=== PATIENT | female | born 1985 | race Two or more races ===

== ENCOUNTER 2024-10-15 00:45 | Emergency (ER) | payer MEDICAID, OTHER ==
[~2024-10-15] VITALS: Ht 157.5 cm; Wt 82.7 kg
--- NOTE | 2024-10-15 06:59 | ED.PDOC ---
PASSENGER REPRESENTATIVE HPI Comments 38 y/o F, presents to the ED for CC of vaginal bleeding. 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 Patient reports, her LMP to have been on 08/08/24. Patient denies abdominal cramping, vaginal cramping, dysuria, faintness, or dizziness. No other symptoms or modifying factors present at this time. Chief Complaint: Vaginal Bleed Time Seen by MD: 06:30 Reviewed Notes: Nurses Notes, Medications, Allergies Allergies: Coded Allergies: No Known Drug Allergy (Verified Allergy, Unknown, 10/15/24) Information Source: Patient Mode of Arrival: Ambulatory Timing: Minutes Prehospital treatment: None Severity: Moderate Vaginal Discharge: None Vaginal Lesions: None Bleeding Quality: Bright Red, Clotted Vaginal Mass: None Onset Of Mass/Bleeding: Spontaneous Sexual Activity: Last Consensual [place]: Weeks History of: Current Blood Type: Unknown Associated Signs and Symptoms: Vaginal Bleeding Past Medical History PAST MEDICAL HISTORY: Denies Surgical History: Denies all surgeries LABOR CONTRACT ANALYST History: Denies all LABOR CONTRACT ANALYST Hx Family History Family History: Unknown Social History Smoker: Non-Smoker Alcohol: Denies ETOH Use Drugs: Denies Drug Use Lives In: Home Constitutional: denies: chills, diaphoresis, fatigue, fever, malaise, sweats, weakness, others EENTM: denies: blurred vision, double vision, ear bleeding, ear discharge, ear drainage, ear pain, ear ringing, eye pain, eye redness, hearing loss, mouth pain, mouth swelling, nasal discharge, nose bleeding, nose congestion, nose pain, photophobia, tearing, throat pain, throat swelling, voice changes, others Respiratory: denies: cough, hemoptysis, orthopnea, SOB at rest, shortness of breath, SOB with excertion, stridor, wheezing, others Cardiovascular: denies: chest pain, dizzy spells, diaphoresis, Dyspnea on exertion, edema, irregular heart beat, left arm pain, lightheadedness, palpitations, PND, syncope, others Gastrointestinal: denies: abdomen distended, abdominal pain, blood streaked bowels, constipated, diarrhea, dysphagia, difficulty swallowing, hematemesis, melena, nausea, poor appetite, poor fluid intake, rectal bleeding, rectal pain, vomiting, others Genitourinary: reports: abnormal vagina bleeding; denies: burning, dyspareunia, dysuria, flank pain, frequency, hematuria, incontinence, pain, , vagina discharge, urgency, others Neurological: denies: dizziness, fainting, headache, left sided numbness, left sided weakness, numbness, paresthesia, pre-existing deficit, right sided numb ness, right sided weakness, seizure, speech problems, tingling, tremors, weakness, others Musculoskeletal: denies: back pain, gout, joint pain, joint swelling, muscle pain, muscle stiffness, neck pain, others Integumetry: denies: bruises, change in color, change in hair/nails, dryness, laceration, lesions, lumps, rash, wounds, others Allergic/Immunocompromised: denies: Difficulty Healing, Frequent Infections, Hives, Itching, others Hematologic/Lymphatic: reports: blood clots; denies: anemia, easy bleeding, easy bruising, swollen glands, others Endocrine: denies: excessive hunger, excessive sweating, excessive thirst, excessive urination, flushing, intolerance to cold, intolerance to heat, unexplained weight gain, unexplained weight loss, others Psychiatric: denies: anxiety, bipolar disorder, depression, hopeless, panic disorder, schizophrenia, sleepless, suicidal, others All Other Systems: Reviewed and Negative Physical Exam General Appearance: Moderate Distress HEENT: Normal ENT Inspection, Pharynx Normal, TMs Normal Neck: Full Range of Motion, Non-Tender, Normal, Normal Inspection Respiratory: Chest Non-Tender, Lungs Clear, No Accessory Muscle Use, No Respiratory Distress, Normal Breath Sounds Cardiovascular: No Edema, No JVD, No Murmur, No Gallop, Normal Peripheral Pulses, Regular Rate/Rhythm Breast Exam: Deferred Gastrointestinal: No Organomegaly, Non Tender, No Pulsatile Mass, Normal Bowel Sounds, Soft Genitalia: Deferred Pelvic: Deferred Rectal: Deferred Extremities: No calf tenderness, Normal capillary refill, Normal inspection, Normal range of motion, Non-tender, No pedal edema Musculoskeletal : Apperance: Normal 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 Was a procedure done?: No Differential Diagnosis (LABOR CONTRACT ANALYST) Vaginal Bleeding: - Incomplete, - Inevitable, - Missed, - Threatened, Cervicitis, PID, Other (subchorionic hemorrhage) X-Ray, Labs, Meds, VS Vital Signs Date Time Temp Pulse Resp B/P (MAP) Pulse Ox O2 Delivery O2 Flow Rate FiO2 10/15/24 00:47 98.3 78 16 145/108 97 98.3 Lab Test 10/15/24 06:59 10/15/24 06:36 Range/Units Beta HCG, Quantitative 482798.2 H 1.5-4.2 mIU/mL Urine Color Pending Urine Clarity Pending Urine pH Pending Urine Specific Central Pending Urine Protein Pending Urine Ketones Pending Urine Blood Pending Urine Nitrite Pending Urine Bilirubin Pending Urine Urobilinogen Pending Urine Leukocyte Esterase Pending Urine RBC Pending Urine Microscopic WBC Pending Urine Squamous Epithelial Cells Pending Urine Bacteria Pending Urine Glucose Pending Patient alert. Vaginal bleeding for many months. Vitals stable. Answering questions. Was told to take her vitamins. Explained to the patient. Was told to follow up with her OBGYN. Was told to follow up with her primary care physician. Was told to come back if there is any problem. [place] [id number] Ph: [phone] DIAGNOSTIC IMAGING Diagnostic Imaging Report : [id number] Signed PATIENT: [place] ARGUELLOACCT: [id number] UNIT: [id number] : 1985 LOC: ER ROOM / BED: / AGE / SEX: 38 / F ADM STATUS: REG ER SERVICE [id number] ORDERING PHYSICIAN: GILBERTO GLYNN MD PROCEDURE(s): OB4US - OB ULTRASOUND COMP LESS 14WKS REASON: bleeding ORDER NUMBER(s): [id number], ACCESSION NUMBER(s): [id number] OB ULTRASOUND <14 WEEKS: HISTORY: bleeding TECHNIQUE: Multiple real-time grayscale sonographic images of the pelvis with duplex Doppler color flow, spectral and M-mode analysis. FINDINGS: The uterus measures 12.9 x 11.3 x 6.6 cm. There is a hypoechoic mass in the body of the uterus measuring 4.0 x 3.8 x 4.0 cm. The cervix is not visualized. Right ovary measures 2.8 x 1.7 x 2.8 cm with normal Doppler color flow Left ovary measures 3.0 x 1.9 x 3.1 cm with normal Doppler color flow. There is a left adnexal cystic structure measuring 2.4 x 1.6 x 2.8 cm. IUP single live fetus at 8 weeks 6 days average ultrasound age based on mean crown-rump length of 3.6 cm. heart rate detected at 178 beats per minute. Yolk sac is visualized. Amniotic fluid unremarkable Susi-gestational space: . No fluid. IMPRESSION: 1. Intrauterine corresponding to 8 weeks 6 days with cardiac activity measuring 178 beats per minute. 2. 4.0 cm uterine mass which may reflect a fibroid. 3. Left adnexal corpus luteum. ATED BY: PEMA HALL MD DICTATED DATE/TIME: 10/15/24 0841 SIGNED BY: PEMA HALL MD SIGNED DATE/TIME: 10/15/24 0841 CC: Time of 1ST Reevaluation: 07:00 Reevaluation 1ST: Improved Patient Education/Counseling: Diagnosis, Treatment Family Education/Counseling: No Family Present Departure 1 Departure Time of Disposition: 07:03 Impression: Primary Impression: Vaginal bleeding during Disposition: 01 HOME / SELF CARE / HOMELESS Condition: Good Discharged With: Self Critical Care Note Critical Care Time?: No Stability Stability form required: No Heart Score Heart Score: Heart Score Response (Comments) Value History N/A 0 EKG N/A 0 Age N/A 0 Risk Factors N/A 0 Troponin N/A 0 Total 0 I personally scribed for GILBERTO GLYNN MD ([email or web address]) on 10/15/24 at 06:59. Electronically submitted by Janine Herron ([email or web address]). I personally scribed for GILBERTO GLYNN MD ([email or web address]) on 10/15/24 at 08:52. Electronically submitted by Janine Herron ([email or web address]). GILBERTO GLYNN MD Oct 15, 2024 06:59
--- NOTE | 2024-10-15 08:43 | DVH ---
OB ULTRASOUND <14 WEEKS: HISTORY: bleeding TECHNIQUE: Multiple real-time grayscale sonographic images of the pelvis with duplex Doppler color f low, spectral and M-mode analysis. FINDINGS: The uterus measures 12.9 x 11.3 x 6.6 cm. There is a hypoechoic mass in the body of the uterus measur ing 4.0 x 3.8 x 4.0 cm. The cervix is not visualized. Right ovary measures 2.8 x 1.7 x 2.8 cm with normal Doppler color flow Left ovary measures 3.0 x 1.9 x 3.1 cm with normal Doppler color flow. There is a left adnexal cysti c structure measuring 2.4 x 1.6 x 2.8 cm. IUP single live fetus at 8 weeks 6 days average ultrasound age based on mean crown-rump length of 3.6 cm. heart rate detected at 178 beats per minute. Yolk sac is visualized. Amniotic fluid unremarkable Susi-gestational space: . No fluid. IMPRESSION: 1. Intrauterine corresponding to 8 weeks 6 days with cardiac activity measuring 178 beats p er minute. 2. 4.0 cm uterine mass which may reflect a fibroid. 3. Left adnexal corpus luteum.
[2024-10-15 09:37] LABS: Urine Protein, UAD TRACE (Negative)
[2024-10-15 10:36] VITALS: BP 131/75; PULSE 65; RESP 18; TEMP 98.6; O2SAT 100
== END 2024-10-15 10:39 | disposition home or self-care (01) ==
LOC: ER 00:45
DX: O20.9 Hemorrhage in early pregnancy, unspecified (principal); Z3A.08 8 weeks gestation of pregnancy
CPT/HCPCS: 36415; 76801; 81001; 84702